=== PATIENT | female | born 1950 | race Caucasian/White ===

== ENCOUNTER 2016-04-25 12:06 | Inpatient (IN) | payer OTHER ==
[~2016-04-25] VITALS: Ht 152.4 cm; Wt 71.5 kg
[~2016-04-25 12:06] MED LIST: ADVAIR 250/501 DISK IH; ADVAIR HFA120 INHALA IH; ALBUTEROL2.5 MG/3 M IH; AMBIEN5 MG PO; AMITIZA24 MICROGR PO; AMLODIPINE BESY10 MG PO; Advair 250/50 Diskus IH; Ambien PO; Ancef,Kefzol IV; BACTRIM,SEPT1 TABLET PO; BENADRYL25 MG PO; BENZONATATE100 MG PO; BETAMETHASONE D15 GM TP; BETAMETHASONE D45 G1 TP; Bactrim,Septra DS 80 PO; CELEBREX200 MG; CELECOXIB200 MG PO; CYMBALTA60 MG PO; Colace PO; Cymbalta PO; DULOXETINE HCL30 MG PO; DUONEB 2.5-0.5 M3 ML AEROSOL; Ditropan PO; FLONASE16 G1 BOTH NARES; GLUCAGEN1 MG IM/SC; Glucophage PO; Glucophage XR,Fortam PO; HYDROCODON-ACE1 EAC3 PO; HYDROCODON-ACE1 EAC9 PO; KEFLEX250 MG PO; LASIX20 MG PO; LEVAQUIN750 MG PO; LISINOPRIL10 MG PO; LORCET PO; Levaquin PO; MELOXICAM15 MG PO; METFORMIN HCL500 M1 PO; METFORMIN HCL500 MG PO; MONTELUKAST SOD10 MG; MONTELUKAST SOD10 MG PO; MORPHINE SULFAT15 M1 PO; MORPHINE SULFAT60 M1 PO; MORPHINE SULFAT60 MG PO; MYRBETRIQ25 MG PO; NIASPAN,SLO-N1000 MG PO; NICOTINE PATCH1 EAC2 TD; NORCO 10/3251 TABLET PO; NYSTATIN15 GM TP; ONDANSETRON HCL4 MG PO; ONDANSETRON ODT4 MG PO; PERCOCET 5/31 TABLET PO; PRAVACHOL80 MG PO; PRAVASTATIN SOD20 MG PO; PREDNISONE10 M1 PO; PREDNISONE10 MG PO; PREDNISONE20 MG PO; PROAIR HFA8.5 GM IH; PROTONIX40 MG PO; PROVENTIL,2.5 MG/3 M IH; Pepcid PO; Phenergan PO; Pravachol PO; Proventil,Ventolin H IH; Q-DRYL PO; RANITIDINE HCL150 M1 PO; RANITIDINE HCL150 MG PO; SINGULAIR10 MG PO; SPIRIVA RESPIMAT4 GM IH; SPIRIVA1 INHALATI IH; TAMIFLU75 MG PO; TESSALON PERLE100 MG PO; TRAMADOL HCL50 MG PO; Tylenol PR; Tylenol Regular Stre PO; Ultram PO; VENTOLIN HFA18 GM IH; VESICARE10 MG PO; ZITHROMAX Z-PA250 MG PO; Zantac,Taladine PO; Zestril,Prinivil PO; Zocor PO
[2016-04-25 13:41] LABS: CHLORIDE 103 mEq/L (99-109); POTASSIUM 3.9 mEq/L (3.7-5.4); SODIUM 140 mEq/L (136-147)
[2016-04-25 13:43] LABS: GLUCOSE 136 mg/dL (70-99)
[2016-04-25 13:45] LABS: ANION GAP 12 MEQ/L (2-14); TOTAL BILIRUBIN 0.5 mg/dL (0.0-1.0)
[2016-04-25 13:47] LABS: ALKALINE PHOSPHATASE 81 IU/L (3-129); GFR ESTIMATE (CALCULATED) > 59 mL/min/
[2016-04-25 13:48] LABS: UREA NITROGEN (BUN) 13 mg/dL (9-23)
[2016-04-25 14:28] LABS: HEMATOCRIT 36.8 % (36.0-46.0); MCH 31.4 PG (29.0-34.0); MCV 92.5 FL (83-99); MEAN PLAT.VOLUME 10.8 uM^3 (9.5-12.4); PLATELET COUNT 151 K/uL (156-360); RBC DIS.WIDTH-CV 13.1 % (11.8-14.6); RBC DIS.WIDTH-SD 42.8 % (39-53); RED BLOOD COUNT 3.98 M/uL (3.80-5.20); WHITE BLOOD COUNT 3.2 K/uL (4.1-10.2)
[2016-04-25 15:41] LABS: TROP-I INTERPRETATION NEGATIVE; TROPONIN-I < 0.01 ng/mL (0.0-0.30)
[2016-04-25 16:01] LABS: D-DIMER ELISA 0.39 mg/L FEU (< 0.57)
[2016-04-25] MEDS ORDERED: RANITIDINE HCL150 MG PO (18:57)
[2016-04-25] MEDS ORDERED: SINGULAIR10 MG PO (18:57)
[2016-04-25] MEDS ORDERED: CYMBALTA30 MG PO (18:57)
[2016-04-25] MEDS ORDERED: HYDROCODON-ACE1 EAC9 PO (18:57)
[2016-04-25] MEDS ORDERED: METFORMIN HCL500 M1 PO (18:57)
[2016-04-25] MEDS ORDERED: BENZONATATE100 MG PO (18:58)
[2016-04-25] MEDS ORDERED: ADVAIR 250/501 DISK IH (18:58)
[2016-04-25] MEDS ORDERED: MYRBETRIQ50 MG PO (18:58)
[2016-04-25] MEDS ORDERED: PROAIR HFA8.5 GM IH (18:58)
[2016-04-25] MEDS ORDERED: MELOXICAM15 MG PO (18:58)
[2016-04-25] MEDS ORDERED: ALBUTEROL2.5 MG/3 M IH (18:58)
[2016-04-25] MEDS ORDERED: CELEBREX200 MG PO (18:58)
[2016-04-25] MEDS ORDERED: AMLODIPINE BESY10 MG PO (18:59)
[2016-04-25] MEDS ORDERED: AZITHROMYCIN250 MG1 PO ×2 (18:59→19:00)
[2016-04-25] MEDS ORDERED: DELTASONE20 M1 PO (18:59)
[2016-04-25] MEDS ORDERED: MORPHINE SULFAT60 MG PO (18:59)
[2016-04-25] MEDS ORDERED: BENADRYL25 MG PO (19:00)
[2016-04-25] MEDS ORDERED: ZOFRAN4 MG PO (19:00)
[2016-04-25 19:49] VITALS: BP 155/72
[2016-04-25 20:08] LABS: POINT-OF-CARE METER ID UU13113831
[2016-04-25 22:05] LABS: TROP-I INTERPRETATION NEGATIVE; TROPONIN-I < 0.01 ng/mL (0.0-0.30)
[2016-04-26 00:34] LABS: BILIRUBIN NEGATIVE; BLOOD NEGATIVE; COLOR YELLOW ((YELLOW)); GLUCOSE (STRIP) NEGATIVE; KETONES TRACE; LEUKOCYTES NEGATIVE; NITRITE NEGATIVE; PH, URINE 6.5 (5-8); PROTEIN (STRIP) 30; SPECIFIC GRAVITY 1.011 (1.000-1.030)
[2016-04-26 00:43] VITALS: BP 154/70
[2016-04-26 00:44] LABS: ADD MIUA? NO; UCUL ADDED? NO
[2016-04-26 07:28] LABS: POINT-OF-CARE METER ID UU14162513
[2016-04-26 08:18] VITALS: BP 147/70
[2016-04-26 12:45] VITALS: BP 142/67
[2016-04-26 12:50] LABS: POINT-OF-CARE METER ID UU14162513
[2016-04-26 16:08] VITALS: BP 142/67
[2016-04-26 17:27] LABS: POINT-OF-CARE METER ID UU14162513
[2016-04-26 20:40] VITALS: BP 138/63
[2016-04-26 22:07] LABS: POINT-OF-CARE METER ID UU13113700
[2016-04-27 04:00] VITALS: BP 122/80
[2016-04-27 07:44] LABS: POINT-OF-CARE METER ID UU13113831
[2016-04-27 08:40] VITALS: BP 145/67
[2016-04-27 10:04] LABS: MCH 31.6 PG (29.0-34.0); MCHC 33.5 G/DL (30.0-36.0); MCV 94.1 FL (83-99); MEAN PLAT.VOLUME 11.1 uM^3 (9.5-12.4); PLATELET COUNT 166 K/uL (156-360); RBC DIS.WIDTH-CV 13.3 % (11.8-14.6); RBC DIS.WIDTH-SD 46.1 % (39-53); RED BLOOD COUNT 3.93 M/uL (3.80-5.20)
[2016-04-27 10:08] LABS: WHITE BLOOD COUNT 4.6 K/uL (4.1-10.2)
[2016-04-27 10:20] LABS: ANION GAP 9 MEQ/L (2-14); CHLORIDE 103 MEQ/L (99-109); GFR ESTIMATE (CALCULATED) > 59 mL/min/; GLUCOSE 166 mg/dL (70-99); POTASSIUM 4.1 MEQ/L (3.7-5.4); SAMPLE HEMOLYSIS CHECK 0; SAMPLE ICTERIC CHECK 0; SAMPLE LIPEMIA CHECK 0; SODIUM 140 MEQ/L (136-147)
[2016-04-27 10:21] LABS: UREA NITROGEN (BUN) 24 mg/dL (9-23)
[2016-04-27 12:31] LABS: POINT-OF-CARE METER ID UU14162513
[2016-04-27 12:44] VITALS: BP 139/70
[2016-04-27 16:35] VITALS: BP 142/63
[2016-04-27 17:34] LABS: POINT-OF-CARE METER ID UU14162513
[2016-04-27 20:00] VITALS: BP 143/68
[2016-04-27 22:01] LABS: POINT-OF-CARE METER ID UU14162513
[2016-04-28] VITALS (7 sets, daily range): BP systolic 127–159; BP diastolic 64–72
[2016-04-28 07:43] LABS: POINT-OF-CARE METER ID UU13113831
[2016-04-28 12:23] LABS: POINT-OF-CARE METER ID UU14162513
[2016-04-29 03:18] VITALS: BP 145/69
[2016-04-29 08:00] VITALS: BP 146/72
[2016-04-29 16:00] VITALS: BP 102/53
[2016-04-29 23:30] VITALS: BP 149/70
[2016-04-30 07:45] LABS: EOSINOPHIL (%) 0 % (0-5); HEMATOCRIT 38.3 % (36.0-46.0); IMMATURE GRANULOCYTE (%) 0.4 % (0.0-0.7); MCH 31.5 PG (29.0-34.0); MCHC 33.7 G/DL (30.0-36.0); MCV 93.4 FL (83-99); MEAN PLAT.VOLUME 10.8 uM^3 (9.5-12.4); MONOCYTE (%) 7.9 % (3-12); MONOCYTE COUNT 0.6 K/uL (0-0.8); NEUTROPHIL (%) 65.2 % (45-76); PLATELET COUNT 165 K/uL (156-360); RBC DIS.WIDTH-CV 12.9 % (11.8-14.6); RBC DIS.WIDTH-SD 44.2 % (39-53)
[2016-04-30 07:50] LABS: WHITE BLOOD COUNT 7.7 K/uL (4.1-10.2)
[2016-04-30 08:00] VITALS: BP 151/72
[2016-04-30 08:08] LABS: ANION GAP 7 MEQ/L (2-14); CHLORIDE 98 MEQ/L (99-109); GFR ESTIMATE (CALCULATED) > 59 mL/min/; POTASSIUM 4.6 MEQ/L (3.7-5.4); SAMPLE HEMOLYSIS CHECK 0; SAMPLE ICTERIC CHECK 0; SAMPLE LIPEMIA CHECK 0; SODIUM 141 MEQ/L (136-147); UREA NITROGEN (BUN) 23 mg/dL (9-23)
[2016-04-30 08:09] LABS: GLUCOSE 83 mg/dL (70-99)
[2016-04-30 15:25] VITALS: BP 134/692
[2016-04-30 23:56] VITALS: BP 167/79
[2016-05-01 07:00] VITALS: BP 143/70
[2016-05-01 07:24] LABS: EOSINOPHIL (%) 0.3 % (0-5); IMMATURE GRANULOCYTE COUNT 0.1 K/uL; LYMPHOCYTE COUNT 1.9 K/uL (1.0-2.8); MCH 31.3 PG (29.0-34.0); MCHC 34.2 G/DL (30.0-36.0); MCV 91.3 FL (83-99); MEAN PLAT.VOLUME 10.8 uM^3 (9.5-12.4); MONOCYTE (%) 9.2 % (3-12); MONOCYTE COUNT 0.7 K/uL (0-0.8); NEUTROPHIL (%) 62.6 % (45-76); NEUTROPHIL COUNT 4.5 K/uL (1.8-6.4); NRBC (%) 0.3 /100 WBC (0-0); PLATELET COUNT 170 K/uL (156-360); RBC DIS.WIDTH-CV 12.7 % (11.8-14.6); RBC DIS.WIDTH-SD 42.2 % (39-53); RED BLOOD COUNT 4.16 M/uL (3.80-5.20); WHITE BLOOD COUNT 7.1 K/uL (4.1-10.2)
[2016-05-01 10:08] LABS: ANION GAP 6 MEQ/L (2-14); CHLORIDE 98 MEQ/L (99-109); POTASSIUM 4.1 MEQ/L (3.7-5.4); SAMPLE HEMOLYSIS CHECK 0; SAMPLE ICTERIC CHECK 0; SAMPLE LIPEMIA CHECK 0; SODIUM 138 MEQ/L (136-147)
[2016-05-01 10:14] LABS: GFR ESTIMATE (CALCULATED) > 59 mL/min/; GLUCOSE 95 mg/dL (70-99); UREA NITROGEN (BUN) 23 mg/dL (9-23)
[2016-05-01 14:50] VITALS: BP 140/69
[2016-05-01 19:17] VITALS: BP 136/69
[2016-05-01 23:38] VITALS: BP 131/58
[2016-05-02 08:32] VITALS: BP 171/84
[2016-05-02 09:30] LABS: TROP-I INTERPRETATION NEGATIVE; TROPONIN-I < 0.01 ng/mL (0.0-0.30)
[2016-05-02] MEDS ORDERED: SPIRIVA RESPIMAT4 GM IH (10:25)
[2016-05-02] MEDS ORDERED: DUONEB 2.5-0.5 M3 ML AEROSOL (10:25)
[2016-05-02] MEDS ORDERED: PREDNISONE10 MG PO (10:25)
[2016-05-02 15:59] VITALS: BP 128/58
== END 2016-05-02 19:13 | disposition home or self-care (01) | DRG 981 ==
LOC: EME → EDSEX 12:06 → EDBD 12:06 → EDOF 17:32 → 5WEST 19:39 → 2EAST 04-26 08:51
PROVIDERS: Internal Medicine; Nurse Practitioner Adult Health; Nurse Practitioner Family
PROC: 0JDP0ZZ Extraction of Left Lower Leg Subcutaneous Tissue and Fascia, Open Approach (ICD-10-PCS; principal; 2016-04-29)
DX: J44.1 Chronic obstructive pulmonary disease with (acute) exacerbation (principal); J96.01 Acute respiratory failure with hypoxia; L97.822 Non-pressure chronic ulcer of other part of left lower leg with fat layer exposed; E11.9 Type 2 diabetes mellitus without complications; D72.819 Decreased white blood cell count, unspecified; F41.9 Anxiety disorder, unspecified; K21.9 Gastro-esophageal reflux disease without esophagitis; G89.4 Chronic pain syndrome; Z90.49 Acquired absence of other specified parts of digestive tract; F17.210 Nicotine dependence, cigarettes, uncomplicated
CPT/HCPCS: 71020; 80048; 80053; 81003; 82948; 83880; 84484; 85025; 85027; 85379; 87070; 87205; 93005; 94640; 94640 76; 94760; 94799; 99202; 99281; 99285; G0378; J1100; J1650; J1815; J2930; J7030; J7512; J7644; Q0164

== ENCOUNTER 2016-05-03 22:55 | Inpatient (IN) | payer OTHER ==
[~2016-05-03] VITALS: Ht 152.4 cm; Wt 70.0 kg
[~2016-05-03 22:55] MED LIST changes: +AZITHROMYCIN250 MG1 PO; +CELEBREX200 MG PO; +CYMBALTA30 MG PO; +DELTASONE20 M1 PO; +MYRBETRIQ50 MG PO; +ZOFRAN4 MG PO
[2016-05-04 00:03] LABS: EOSINOPHIL (%) 0 % (0-5); HEMATOCRIT 42.6 % (36.0-46.0); IMMATURE GRANULOCYTE (%) 0.7 % (0.0-0.7); IMMATURE GRANULOCYTE COUNT 1.1 K/uL; LYMPHOCYTE COUNT 1.2 K/uL (1.0-2.8); MCH 31.5 PG (29.0-34.0); MCHC 34.5 G/DL (30.0-36.0); MCV 91.4 FL (83-99); MEAN PLAT.VOLUME 10.8 uM^3 (9.5-12.4); MONOCYTE COUNT 0.3 K/uL (0-0.8); NEUTROPHIL (%) 90.1 % (45-76); NEUTROPHIL COUNT 14.9 K/uL (1.8-6.4); PLATELET COUNT 178 K/uL (156-360); RBC DIS.WIDTH-CV 12.9 % (11.8-14.6); RED BLOOD COUNT 4.66 M/uL (3.80-5.20); WHITE BLOOD COUNT 16.5 K/uL (4.1-10.2)
[2016-05-04 00:10] LABS: CHLORIDE 96 mEq/L (99-109); POTASSIUM 4.2 mEq/L (3.7-5.4); SODIUM 134 mEq/L (136-147)
[2016-05-04 00:13] LABS: ANION GAP 11 MEQ/L (2-14)
[2016-05-04 00:14] LABS: GLUCOSE 278 mg/dL (70-99); TOTAL BILIRUBIN 0.7 mg/dL (0.0-1.0)
[2016-05-04 00:15] LABS: ALKALINE PHOSPHATASE 81 IU/L (3-129)
[2016-05-04 00:16] LABS: GFR ESTIMATE (CALCULATED) > 59 mL/min/
[2016-05-04 00:17] LABS: UREA NITROGEN (BUN) 21 mg/dL (9-23)
[2016-05-04 00:22] LABS: TROP-I INTERPRETATION NEGATIVE; TROPONIN-I < 0.01 ng/mL (0.0-0.30)
[2016-05-04 02:35] VITALS: BP 137/65
[2016-05-04 07:33] VITALS: BP 134/75
[2016-05-04 14:48] VITALS: BP 156/72
[2016-05-04 20:13] VITALS: BP 133/63
[2016-05-04 23:20] VITALS: BP 127/61
[2016-05-05 02:56] VITALS: BP 117/56
[2016-05-05 06:33] LABS: HEMATOCRIT 37.5 % (36.0-46.0); MCH 31.1 PG (29.0-34.0); MCHC 33.6 G/DL (30.0-36.0); MCV 92.6 FL (83-99); MEAN PLAT.VOLUME 11.1 uM^3 (9.5-12.4); PLATELET COUNT 164 K/uL (156-360); RBC DIS.WIDTH-CV 12.7 % (11.8-14.6); RBC DIS.WIDTH-SD 43.3 % (39-53); RED BLOOD COUNT 4.05 M/uL (3.80-5.20); WHITE BLOOD COUNT 12.7 K/uL (4.1-10.2)
[2016-05-05 06:39] LABS: ANION GAP 7 MEQ/L (2-14); CHLORIDE 99 MEQ/L (99-109); GFR ESTIMATE (CALCULATED) > 59 mL/min/; GLUCOSE 182 mg/dL (70-99); POTASSIUM 4.6 MEQ/L (3.7-5.4); SAMPLE HEMOLYSIS CHECK 0; SAMPLE ICTERIC CHECK 0; SAMPLE LIPEMIA CHECK 0; SODIUM 138 MEQ/L (136-147); UREA NITROGEN (BUN) 28 mg/dL (9-23)
[2016-05-05 08:10] LABS: INTERNAL CONTROL VALID? YES
[2016-05-05 08:28] VITALS: BP 130/83
[2016-05-05 11:12] VITALS: BP 134/64
[2016-05-05 16:02] VITALS: BP 132/68
[2016-05-05 20:47] VITALS: BP 146/72
[2016-05-05 22:42] VITALS: BP 150/69
[2016-05-06] VITALS (7 sets, daily range): BP systolic 127–149; BP diastolic 62–81
[2016-05-06 06:30] LABS: HEMATOCRIT 36.9 % (36.0-46.0); MCHC 33.1 G/DL (30.0-36.0); MCV 93.7 FL (83-99); MEAN PLAT.VOLUME 10.9 uM^3 (9.5-12.4); PLATELET COUNT 189 K/uL (156-360); RBC DIS.WIDTH-CV 12.7 % (11.8-14.6); RBC DIS.WIDTH-SD 43.4 % (39-53); RED BLOOD COUNT 3.94 M/uL (3.80-5.20)
[2016-05-06 06:53] LABS: ANION GAP 8 MEQ/L (2-14); CHLORIDE 100 MEQ/L (99-109); GFR ESTIMATE (CALCULATED) > 59 mL/min/; GLUCOSE 134 mg/dL (70-99); POTASSIUM 4.3 MEQ/L (3.7-5.4); SAMPLE HEMOLYSIS CHECK 1; SAMPLE ICTERIC CHECK 0; SAMPLE LIPEMIA CHECK 0; SODIUM 140 MEQ/L (136-147); UREA NITROGEN (BUN) 21 mg/dL (9-23)
[2016-05-07 04:03] VITALS: BP 139/63
[2016-05-07 07:55] VITALS: BP 130/69
[2016-05-07 11:36] VITALS: BP 147/65
[2016-05-07 15:47] VITALS: BP 133/65
[2016-05-07 19:16] VITALS: BP 130/62
[2016-05-07 23:10] VITALS: BP 156/73
[2016-05-08 03:33] VITALS: BP 189/77
[2016-05-08 08:24] VITALS: BP 146/66
[2016-05-08 11:43] VITALS: BP 133/71
[2016-05-08 16:00] VITALS: BP 149/78
[2016-05-08 20:25] VITALS: BP 154/72
[2016-05-09 01:35] VITALS: BP 141/64
[2016-05-09 04:11] VITALS: BP 151/60
[2016-05-09 08:40] VITALS: BP 97/68
[2016-05-09] MEDS ORDERED: MORPHINE SULFAT60 MG PO (10:44)
[2016-05-09] MEDS ORDERED: LEVAQUIN750 MG PO (10:44)
[2016-05-09] MEDS ORDERED: HYDROCODON-ACE1 EAC9 PO (10:44)
[2016-05-09] MEDS ORDERED: PREDNISONE10 M1 PO (10:44)
[2016-05-09 12:33] VITALS: BP 144/66
== END 2016-05-09 14:49 | DRG 189 ==
LOC: EME → EDBD 22:55 → EDOF 05-04 00:41 → 5EAST 05-04 00:41 → EDOF 05-04 01:20 → 5EAST 05-04 02:23
PROVIDERS: Emergency Medicine; Hospitalist; Internal Medicine
PROC: 0HDLXZZ Extraction of Left Lower Leg Skin, External Approach (ICD-10-PCS; principal; 2016-05-08)
DX: J96.01 Acute respiratory failure with hypoxia (principal); J44.0 Chronic obstructive pulmonary disease with (acute) lower respiratory infection; J18.9 Pneumonia, unspecified organism; J44.1 Chronic obstructive pulmonary disease with (acute) exacerbation; L97.822 Non-pressure chronic ulcer of other part of left lower leg with fat layer exposed; I10 Essential (primary) hypertension; E11.9 Type 2 diabetes mellitus without complications; K21.9 Gastro-esophageal reflux disease without esophagitis; G89.4 Chronic pain syndrome; F17.210 Nicotine dependence, cigarettes, uncomplicated; Y95 Nosocomial condition; E66.9 Obesity, unspecified; Z68.30 Body mass index [BMI] 30.0-30.9, adult; Z99.81 Dependence on supplemental oxygen; Z88.7 Allergy status to serum and vaccine; Z88.0 Allergy status to penicillin; Z88.1 Allergy status to other antibiotic agents; Z86.14 Personal history of Methicillin resistant Staphylococcus aureus infection
CPT/HCPCS: 71010; 71250; 74230; 80048; 80053; 80202; 83605; 83880; 84484; 85025; 85027; 87040; 87070; 87205; 87449; 92610 GN; 92611 GN; 93005; 94640; 94640 76; 94760; 94799; 97530 GO; 99202; 99281; 99285; G8978 GP CI; G8979 GP CH; J0692; J1650; J2270; J2543; J2930; J3370; J7050; J7512; J7644

== ENCOUNTER → 2016-05-21 | Outpatient (CLI) | payer OTHER | LOC: RAD 10:36 | DX: J98.11 Atelectasis (principal); J84.10 Pulmonary fibrosis, unspecified | CPT/HCPCS: 71250 ==

== ENCOUNTER 2016-09-03 20:44 | Emergency (ER) | payer OTHER ==
[~2016-09-03] VITALS: Ht 152.4 cm; Wt 70.5 kg
[2016-09-03 21:06] VITALS: BP 109/66
[2016-09-03 22:22] LABS: HEMATOCRIT 38.6 % (36.0-46.0); MCH 30.6 PG (29.0-34.0); MCHC 32.4 G/DL (30.0-36.0); MCV 94.6 FL (83-99); MEAN PLAT.VOLUME 11.1 uM^3 (9.5-12.4); PLATELET COUNT 197 K/uL (156-360); RBC DIS.WIDTH-CV 13.2 % (11.8-14.6); RBC DIS.WIDTH-SD 45.6 % (39-53); RED BLOOD COUNT 4.08 M/uL (3.80-5.20); WHITE BLOOD COUNT 7.4 K/uL (4.1-10.2)
[2016-09-03 22:42] LABS: CHLORIDE 106 mEq/L (99-109); POTASSIUM 5.1 mEq/L (3.7-5.4); SODIUM 140 mEq/L (136-147)
[2016-09-03 22:44] LABS: GLUCOSE 146 mg/dL (70-99)
[2016-09-03 22:45] LABS: ANION GAP 10 MEQ/L (2-14)
[2016-09-03 22:46] LABS: TOTAL BILIRUBIN 0.3 mg/dL (0.0-1.0)
[2016-09-03 22:47] LABS: ALKALINE PHOSPHATASE 113 IU/L (3-129)
[2016-09-03 22:48] LABS: GFR ESTIMATE (CALCULATED) 47 mL/min/
[2016-09-03 22:49] LABS: UREA NITROGEN (BUN) 30 mg/dL (9-23)
[2016-09-03] MEDS ORDERED: KEFLEX500 MG PO (23:49)
== END 2016-09-04 01:24 | disposition home or self-care (01) ==
LOC: EME 20:44
DX: L03.116 Cellulitis of left lower limb (principal); R60.0 Localized edema; J45.909 Unspecified asthma, uncomplicated; J44.9 Chronic obstructive pulmonary disease, unspecified; E11.9 Type 2 diabetes mellitus without complications; I10 Essential (primary) hypertension; Z87.442 Personal history of urinary calculi; K21.9 Gastro-esophageal reflux disease without esophagitis; Z87.891 Personal history of nicotine dependence; Z79.84 Long term (current) use of oral hypoglycemic drugs
CPT/HCPCS: 80053; 83880; 85027; 99281; 99284

== ENCOUNTER 2016-11-06 14:19 | Inpatient (IN) | payer OTHER ==
[~2016-11-06] VITALS: Ht 152.4 cm; Wt 76.3 kg
[~2016-11-06 14:19] MED LIST changes: +KEFLEX500 MG PO
[2016-11-06 16:42] LABS: EOSINOPHIL (%) 0.9 % (0-5); EOSINOPHIL COUNT 0.1 K/uL (0-0.3); HEMATOCRIT 33.5 % (36.0-46.0); IMMATURE GRANULOCYTE (%) 0.5 % (0.0-0.7); IMMATURE GRANULOCYTE COUNT 0.1 K/uL; INSTRUMENT ABS NEUTROPHIL CT 8.3 K/uL; LYMPHOCYTE COUNT 1.5 K/uL (1.0-2.8); MCH 29.9 PG (29.0-34.0); MCHC 33.1 G/DL (30.0-36.0); MCV 90.3 FL (83-99); MEAN PLAT.VOLUME 10.7 uM^3 (9.5-12.4); MONOCYTE (%) 5.2 % (3-12); MONOCYTE COUNT 0.6 K/uL (0-0.8); NEUTROPHIL (%) 78.4 % (45-76); NEUTROPHIL COUNT 8.3 K/uL (1.8-6.4); PLATELET COUNT 194 K/uL (156-360); RBC DIS.WIDTH-CV 13.7 % (11.8-14.6); RED BLOOD COUNT 3.71 M/uL (3.80-5.20); WHITE BLOOD COUNT 10.6 K/uL (4.1-10.2)
[2016-11-06 17:19] LABS: CHLORIDE 103 mEq/L (99-109); POTASSIUM 4.1 mEq/L (3.7-5.4); SODIUM 138 mEq/L (136-147)
[2016-11-06 17:20] LABS: GLUCOSE 117 mg/dL (70-99)
[2016-11-06 17:22] LABS: ANION GAP 11 MEQ/L (2-14)
[2016-11-06 17:24] LABS: GFR ESTIMATE (CALCULATED) 52 mL/min/
[2016-11-06 17:25] LABS: UREA NITROGEN (BUN) 27 mg/dL (9-23)
[2016-11-07 03:12] LABS: HEMATOCRIT 33.6 % (36.0-46.0); MCH 29.7 PG (29.0-34.0); MCV 89.8 FL (83-99); MEAN PLAT.VOLUME 10.9 uM^3 (9.5-12.4); PLATELET COUNT 187 K/uL (156-360); RBC DIS.WIDTH-CV 13.6 % (11.8-14.6); RBC DIS.WIDTH-SD 44.6 % (39-53); RED BLOOD COUNT 3.74 M/uL (3.80-5.20); WHITE BLOOD COUNT 3.2 K/uL (4.1-10.2)
[2016-11-07 03:26] LABS: CHLORIDE 104 mEq/L (99-109); SODIUM 135 mEq/L (136-147)
[2016-11-07 03:30] LABS: ANION GAP 8 MEQ/L (2-14); TOTAL BILIRUBIN 0.5 mg/dL (0.0-1.0)
[2016-11-07 03:31] LABS: GLUCOSE 188 mg/dL (70-99)
[2016-11-07 03:32] LABS: ALKALINE PHOSPHATASE 93 IU/L (3-129); GFR ESTIMATE (CALCULATED) 59 mL/min/
[2016-11-07 03:33] LABS: UREA NITROGEN (BUN) 21 mg/dL (9-23)
[2016-11-07 05:03] LABS: TROP-I INTERPRETATION NEGATIVE; TROPONIN-I < 0.01 ng/mL (0.0-0.30)
[2016-11-07 08:37] LABS: POINT-OF-CARE METER ID UU14100415
[2016-11-07 10:00] VITALS: BP 123/77
[2016-11-07 11:32] LABS: POINT-OF-CARE METER ID UU13113747
[2016-11-07 12:24] VITALS: BP 115/66
[2016-11-07] MEDS ORDERED: ADVAIR 250/501 DISK IH (12:51)
[2016-11-07] MEDS ORDERED: AMLODIPINE BESY10 MG PO (12:52)
[2016-11-07] MEDS ORDERED: CETIRIZINE HCL10 M2 PO (12:56)
[2016-11-07] MEDS ORDERED: LASIX40 MG PO (12:58)
[2016-11-07] MEDS ORDERED: SPIRIVA RESPIMAT4 GM IH (13:01)
[2016-11-07] MEDS ORDERED: HYDROCODON-ACE1 EAC9 PO (13:02)
[2016-11-07] MEDS ORDERED: LASIX20 MG PO (13:03)
[2016-11-07] MEDS ORDERED: MORPHINE SULFAT60 MG PO (13:03)
[2016-11-07] MEDS ORDERED: METFORMIN HCL500 MG PO (13:04)
[2016-11-07] MEDS ORDERED: LISINOPRIL2.5 MG PO (13:05)
[2016-11-07] MEDS ORDERED: PRAVASTATIN SOD80 MG PO (13:05)
[2016-11-07] MEDS ORDERED: SPIRIVA1 INHALATI IH (13:05)
[2016-11-07 13:23] VITALS: BP 127/77
[2016-11-07 15:45] VITALS: BP 129/64
[2016-11-07 19:44] VITALS: BP 131/66
[2016-11-08 00:18] VITALS: BP 126/75
[2016-11-08 03:53] VITALS: BP 122/70
[2016-11-08 07:05] LABS: HEMATOCRIT 35.5 % (36.0-46.0); MCH 30.6 PG (29.0-34.0); MCHC 34.4 G/DL (30.0-36.0); MEAN PLAT.VOLUME 11.2 uM^3 (9.5-12.4); PLATELET COUNT 218 K/uL (156-360); RBC DIS.WIDTH-CV 13.9 % (11.8-14.6); RBC DIS.WIDTH-SD 45.1 % (39-53); RED BLOOD COUNT 3.99 M/uL (3.80-5.20); WHITE BLOOD COUNT 5.7 K/uL (4.1-10.2)
[2016-11-08 07:28] LABS: ANION GAP 10 MEQ/L (2-14); CHLORIDE 107 MEQ/L (99-109); GFR ESTIMATE (CALCULATED) > 59 mL/min/; GLUCOSE 212 mg/dL (70-99); POTASSIUM 3.9 MEQ/L (3.7-5.4); SAMPLE HEMOLYSIS CHECK 0; SAMPLE ICTERIC CHECK 0; SAMPLE LIPEMIA CHECK 0; SODIUM 141 MEQ/L (136-147); UREA NITROGEN (BUN) 18 mg/dL (9-23)
[2016-11-08 07:45] VITALS: BP 135/61
[2016-11-08 11:30] VITALS: BP 129/63
[2016-11-08 15:48] VITALS: BP 136/65
[2016-11-08 20:07] VITALS: BP 132/61
[2016-11-09 01:18] VITALS: BP 145/67
[2016-11-09 03:36] VITALS: BP 142/65
[2016-11-09 07:57] LABS: ANION GAP 7 MEQ/L (2-14); CHLORIDE 106 MEQ/L (99-109); CREATINE KINASE 57 IU/L (1-294); GFR ESTIMATE (CALCULATED) > 59 mL/min/; GLUCOSE 205 mg/dL (70-99); MAGNESIUM 1.8 mg/dl (1.3-2.7); POTASSIUM 3.7 MEQ/L (3.7-5.4); SAMPLE HEMOLYSIS CHECK 0; SAMPLE ICTERIC CHECK 0; SAMPLE LIPEMIA CHECK 0; SODIUM 140 MEQ/L (136-147); UREA NITROGEN (BUN) 16 mg/dL (9-23)
[2016-11-09 07:58] LABS: EOSINOPHIL (%) 0 % (0-5); HEMATOCRIT 33.3 % (36.0-46.0); IMMATURE GRANULOCYTE (%) 0.5 % (0.0-0.7); INSTRUMENT ABS NEUTROPHIL CT 5.7 K/uL; LYMPHOCYTE COUNT 0.5 K/uL (1.0-2.8); MCH 29.6 PG (29.0-34.0); MCHC 33.3 G/DL (30.0-36.0); MCV 88.8 FL (83-99); MEAN PLAT.VOLUME 11.2 uM^3 (9.5-12.4); MONOCYTE (%) 2.2 % (3-12); MONOCYTE COUNT 0.1 K/uL (0-0.8); NEUTROPHIL (%) 88.8 % (45-76); NEUTROPHIL COUNT 5.7 K/uL (1.8-6.4); PLATELET COUNT 179 K/uL (156-360); RBC DIS.WIDTH-SD 45.8 % (39-53); RED BLOOD COUNT 3.75 M/uL (3.80-5.20); WHITE BLOOD COUNT 6.4 K/uL (4.1-10.2)
[2016-11-09 09:01] VITALS: BP 144/63
[2016-11-09 11:53] VITALS: BP 144/67
[2016-11-09 12:00] LABS: POINT-OF-CARE METER ID UU14208750
[2016-11-09 14:27] LABS: METH RESISTANT S AUREUS PCR NEGATIVE (NEGATIVE)
[2016-11-09 14:36] LABS: PROBE CHECK PASS; SPECIMEN PROCESSING CONTROL PASS
[2016-11-09 15:35] VITALS: BP 143/82
[2016-11-09 15:52] LABS: POINT-OF-CARE METER ID UU14208750
[2016-11-09 21:03] VITALS: BP 155/65
[2016-11-09 21:38] LABS: POINT-OF-CARE METER ID UU14208750
[2016-11-10 00:45] VITALS: BP 161/72
[2016-11-10 04:30] VITALS: BP 141/80
[2016-11-10 07:03] LABS: POINT-OF-CARE METER ID UU14208750
[2016-11-10 07:20] VITALS: BP 141/65
[2016-11-10 11:58] LABS: POINT-OF-CARE METER ID UU14208750
[2016-11-10 12:00] VITALS: BP 174/81
[2016-11-10 15:43] VITALS: BP 177/77
[2016-11-10 16:03] LABS: POINT-OF-CARE METER ID UU14208750
[2016-11-10 23:16] VITALS: BP 170/70
[2016-11-11 07:16] LABS: POINT-OF-CARE USER ID PUTDRM
[2016-11-11 07:50] VITALS: BP 149/68
[2016-11-11] MEDS ORDERED: PREDNISONE10 MG PO (11:13)
[2016-11-11] MEDS ORDERED: LIDOCAINE700 MG TD (11:13)
[2016-11-11] MEDS ORDERED: CEPHALEXIN250 MG PO (11:13)
[2016-11-11] MEDS ORDERED: OXYCODONE HCL5 MG PO (11:13)
[2016-11-11 15:45] VITALS: BP 145/70
== END 2016-11-11 19:06 | disposition home or self-care (01) | DRG 189 ==
LOC: EME 14:19 → 2EASTP 11-07 02:21 → EDOF 11-07 02:21 → 2EASTP 11-07 13:05
PROVIDERS: Emergency Medicine; Hospitalist; Internal Medicine
DX: J96.01 Acute respiratory failure with hypoxia (principal); L03.116 Cellulitis of left lower limb; K50.90 Crohn's disease, unspecified, without complications; J44.1 Chronic obstructive pulmonary disease with (acute) exacerbation; Z99.81 Dependence on supplemental oxygen; E11.65 Type 2 diabetes mellitus with hyperglycemia; J20.9 Acute bronchitis, unspecified; E04.1 Nontoxic single thyroid nodule; M54.9 Dorsalgia, unspecified; M25.511 Pain in right shoulder; K21.9 Gastro-esophageal reflux disease without esophagitis; I10 Essential (primary) hypertension; D72.829 Elevated white blood cell count, unspecified; G89.4 Chronic pain syndrome; F41.8 Other specified anxiety disorders; F32.9 Major depressive disorder, single episode, unspecified; M47.816 Spondylosis without myelopathy or radiculopathy, lumbar region; F41.9 Anxiety disorder, unspecified; M13.0 Polyarthritis, unspecified; R29.6 Repeated falls; F17.210 Nicotine dependence, cigarettes, uncomplicated; E66.9 Obesity, unspecified; Z68.32 Body mass index [BMI] 32.0-32.9, adult; Z86.14 Personal history of Methicillin resistant Staphylococcus aureus infection; Z88.0 Allergy status to penicillin
CPT/HCPCS: 70450; 71101; 71275; 73030; 80048; 80053; 82550; 82948; 83735; 83880; 84100; 84484; 84520; 85025; 85027; 87070; 87205; 87641; 93005; 93970; 94640; 94640 76; 94799; 97530 GP; 99202; 99281; 99285; J0690; J1644; J1815; J2920; J2930; J7030; J7050; J7512

== ENCOUNTER 2017-03-12 12:19 | Inpatient (IN) | payer OTHER ==
[~2017-03-12] VITALS: Ht 152.4 cm; Wt 75.5 kg
[~2017-03-12 12:19] MED LIST changes: +CEPHALEXIN250 MG PO; +CETIRIZINE HCL10 M2 PO; +LASIX40 MG PO; +LIDOCAINE700 MG TD; +LISINOPRIL2.5 MG PO; +OXYCODONE HCL5 MG PO; +PRAVASTATIN SOD80 MG PO
[2017-03-12 13:06] LABS: MCH 30.7 PG (29.0-34.0); MCV 90.2 FL (83-99); MEAN PLAT.VOLUME 12.1 uM^3 (9.5-12.4); PLATELET COUNT 110 K/uL (156-360); RBC DIS.WIDTH-CV 12.9 % (11.8-14.6); RBC DIS.WIDTH-SD 42.4 % (39-53); RED BLOOD COUNT 3.88 M/uL (3.80-5.20); WHITE BLOOD COUNT 9.1 K/uL (4.1-10.2)
[2017-03-12 13:26] LABS: CHLORIDE 102 mEq/L (99-109); SODIUM 135 mEq/L (136-147)
[2017-03-12 13:28] LABS: GLUCOSE 141 mg/dL (70-99)
[2017-03-12 13:33] LABS: ANION GAP 14 MEQ/L (2-14); GFR ESTIMATE (CALCULATED) 32 mL/min/; UREA NITROGEN (BUN) 34 mg/dL (9-23)
[2017-03-12 13:39] LABS: TROP-I INTERPRETATION NEGATIVE; TROPONIN-I 0.05 ng/mL (0.0-0.30)
[2017-03-12 14:39] LABS: ADD MIUA? YES; BILIRUBIN NEGATIVE; BLOOD SMALL; COLOR YELLOW ((YELLOW)); GLUCOSE (STRIP) NEGATIVE; KETONES NEGATIVE; LEUKOCYTES NEGATIVE; NITRITE NEGATIVE; PROTEIN (STRIP) NEGATIVE; UROBILINOGEN 0.2 MG/DL (0.2-1.0)
[2017-03-12 14:53] LABS: BACTERIA NONE SEEN /HPF; EPITHELIAL CELLS RARE /HPF; GRANULAR CASTS 0-5 /LPF; MUCUS TRACE /LPF; RED BLOOD CELLS 0-5 /HPF (0-5); UCUL ADDED? NO; WHITE BLOOD CELLS 0-5 /HPF (0-5)
[2017-03-12 16:37] LABS: TROP-I INTERPRETATION NEGATIVE; TROPONIN-I 0.04 ng/mL (0.0-0.30)
[2017-03-12 16:52] LABS: CREATINE KINASE 858 IU/L (1-294)
[2017-03-12 21:09] VITALS: BP 101/52
[2017-03-13 00:16] VITALS: BP 114/57
[2017-03-13 06:05] LABS: HEMATOCRIT 30.4 % (36.0-46.0); MCH 30.6 PG (29.0-34.0); MCHC 33.6 G/DL (30.0-36.0); MCV 91.3 FL (83-99); MEAN PLAT.VOLUME 10.9 uM^3 (9.5-12.4); RBC DIS.WIDTH-SD 43.2 % (39-53); RED BLOOD COUNT 3.33 M/uL (3.80-5.20); WHITE BLOOD COUNT 5.7 K/uL (4.1-10.2)
[2017-03-13 06:07] LABS: PLATELET COUNT 184 K/uL (156-360)
[2017-03-13 06:20] LABS: ANION GAP 12 MEQ/L (2-14); CHLORIDE 105 MEQ/L (99-109); CREATINE KINASE 523 IU/L (1-294); GFR ESTIMATE (CALCULATED) 52 mL/min/; POTASSIUM 3.4 MEQ/L (3.7-5.4); SAMPLE HEMOLYSIS CHECK 0; SAMPLE ICTERIC CHECK 0; SAMPLE LIPEMIA CHECK 0; SODIUM 141 MEQ/L (136-147); UREA NITROGEN (BUN) 23 mg/dL (9-23)
[2017-03-13 06:47] LABS: GLUCOSE 73 mg/dL (70-99)
[2017-03-13 07:20] VITALS: BP 109/58
[2017-03-13 07:25] LABS: POINT-OF-CARE METER ID UU13113774
[2017-03-13 11:10] VITALS: BP 123/64
[2017-03-13 11:28] LABS: POINT-OF-CARE METER ID UU13113774
[2017-03-13 15:10] VITALS: BP 100/57
[2017-03-13 16:40] LABS: POINT-OF-CARE METER ID UU13113774
[2017-03-13 20:04] VITALS: BP 126/63
[2017-03-13 21:18] LABS: POINT-OF-CARE METER ID UU13113725
[2017-03-13 23:39] VITALS: BP 149/69
[2017-03-14 03:44] VITALS: BP 143/69
[2017-03-14 06:04] LABS: EOSINOPHIL (%) 2.9 % (0-5); EOSINOPHIL COUNT 0.1 K/uL (0-0.3); HEMATOCRIT 29.9 % (36.0-46.0); IMMATURE GRANULOCYTE (%) 0.2 % (0.0-0.7); INSTRUMENT ABS NEUTROPHIL CT 2.5 K/uL; LYMPHOCYTE COUNT 1.7 K/uL (1.0-2.8); MCH 30.2 PG (29.0-34.0); MCHC 33.1 G/DL (30.0-36.0); MCV 91.2 FL (83-99); MEAN PLAT.VOLUME 10.9 uM^3 (9.5-12.4); MONOCYTE (%) 9.6 % (3-12); MONOCYTE COUNT 0.5 K/uL (0-0.8); NEUTROPHIL (%) 52.2 % (45-76); NEUTROPHIL COUNT 2.5 K/uL (1.8-6.4); PLATELET COUNT 191 K/uL (156-360); RBC DIS.WIDTH-SD 42.6 % (39-53); RED BLOOD COUNT 3.28 M/uL (3.80-5.20); WHITE BLOOD COUNT 4.8 K/uL (4.1-10.2)
[2017-03-14 06:13] LABS: POINT-OF-CARE METER ID UU13113725
[2017-03-14 06:26] LABS: ANION GAP 6 MEQ/L (2-14); CHLORIDE 114 MEQ/L (99-109); GFR ESTIMATE (CALCULATED) > 59 mL/min/; POTASSIUM 3.8 MEQ/L (3.7-5.4); SAMPLE HEMOLYSIS CHECK 0; SAMPLE ICTERIC CHECK 0; SAMPLE LIPEMIA CHECK 0; SODIUM 145 MEQ/L (136-147); UREA NITROGEN (BUN) 15 mg/dL (9-23)
[2017-03-14 06:27] LABS: GLUCOSE 100 mg/dL (70-99)
[2017-03-14 07:08] VITALS: BP 127/64
[2017-03-14 10:57] LABS: POINT-OF-CARE METER ID UU13113774
[2017-03-14 11:33] VITALS: BP 126/62
[2017-03-14 16:15] LABS: POINT-OF-CARE METER ID UU13113774
[2017-03-14 16:47] VITALS: BP 147/66
[2017-03-14 21:29] VITALS: BP 139/67
[2017-03-15] VITALS (7 sets, daily range): BP systolic 144–165; BP diastolic 65–74
[2017-03-15 06:12] LABS: EOSINOPHIL (%) 2.5 % (0-5); EOSINOPHIL COUNT 0.1 K/uL (0-0.3); HEMATOCRIT 29.7 % (36.0-46.0); IMMATURE GRANULOCYTE (%) 0.2 % (0.0-0.7); INSTRUMENT ABS NEUTROPHIL CT 2.6 K/uL; MCH 30.4 PG (29.0-34.0); MCHC 33.7 G/DL (30.0-36.0); MCV 90.3 FL (83-99); MEAN PLAT.VOLUME 10.7 uM^3 (9.5-12.4); MONOCYTE (%) 8.6 % (3-12); MONOCYTE COUNT 0.4 K/uL (0-0.8); NEUTROPHIL (%) 49.9 % (45-76); NEUTROPHIL COUNT 2.6 K/uL (1.8-6.4); PLATELET COUNT 191 K/uL (156-360); RBC DIS.WIDTH-SD 42.6 % (39-53); RED BLOOD COUNT 3.29 M/uL (3.80-5.20); WHITE BLOOD COUNT 5.1 K/uL (4.1-10.2)
[2017-03-15 06:33] LABS: ANION GAP 8 MEQ/L (2-14); CHLORIDE 114 MEQ/L (99-109); GFR ESTIMATE (CALCULATED) > 59 mL/min/; GLUCOSE 102 mg/dL (70-99); POTASSIUM 3.4 MEQ/L (3.7-5.4); SAMPLE HEMOLYSIS CHECK 0; SAMPLE ICTERIC CHECK 0; SAMPLE LIPEMIA CHECK 0; SODIUM 145 MEQ/L (136-147); UREA NITROGEN (BUN) 8 mg/dL (9-23)
[2017-03-15 07:08] LABS: POINT-OF-CARE METER ID UU13113725
[2017-03-15 10:58] LABS: POINT-OF-CARE METER ID UU13113725
[2017-03-15 15:58] LABS: POINT-OF-CARE METER ID UU13113774
[2017-03-16 05:57] LABS: POINT-OF-CARE METER ID UU13113725
[2017-03-16 07:33] VITALS: BP 187/81
[2017-03-16 08:24] VITALS: BP 160/71
[2017-03-16 11:32] LABS: POINT-OF-CARE METER ID UU13113725
[2017-03-16 16:06] VITALS: BP 172/78
[2017-03-16 16:11] LABS: POINT-OF-CARE METER ID UU13113725
[2017-03-16 20:54] LABS: POINT-OF-CARE METER ID UU13113774
[2017-03-16 23:20] VITALS: BP 164/73
[2017-03-17 07:35] VITALS: BP 174/73
[2017-03-17 08:13] LABS: POINT-OF-CARE METER ID UU13113774
[2017-03-17] MEDS ORDERED: MORPHINE SULFAT60 MG PO (10:18)
[2017-03-17] MEDS ORDERED: METFORMIN HCL500 M1 PO (10:19)
[2017-03-17] MEDS ORDERED: FUROSEMIDE20 MG PO (10:19)
[2017-03-17] MEDS ORDERED: MONTELUKAST SOD10 MG PO (10:20)
[2017-03-17 11:00] LABS: POINT-OF-CARE METER ID UU13113774
[2017-03-17] MEDS ORDERED: BENZONATATE100 MG PO (12:36)
[2017-03-17] MEDS ORDERED: SPIRIVA RESPIMAT4 GM IH (12:36)
[2017-03-17] MEDS ORDERED: AMLODIPINE BESY10 MG PO (12:36)
[2017-03-17 15:43] LABS: POINT-OF-CARE METER ID UU13113774
[2017-03-17 16:10] VITALS: BP 158/78
== END 2017-03-17 16:11 | DRG 683 ==
LOC: EME 12:19 → 5EAST 16:24 → EDOF 16:24 → ENRESERV 17:16 → 5EAST 19:50 → ENPENDDIS 03-17 15:30 → 5EAST 03-17 16:11
PROVIDERS: Hospitalist; Internal Medicine; Physician Assistant Medical
DX: N17.9 Acute kidney failure, unspecified (principal); J44.9 Chronic obstructive pulmonary disease, unspecified; J96.11 Chronic respiratory failure with hypoxia; M62.82 Rhabdomyolysis; S09.90XA Unspecified injury of head, initial encounter; E11.22 Type 2 diabetes mellitus with diabetic chronic kidney disease; D69.6 Thrombocytopenia, unspecified; E04.1 Nontoxic single thyroid nodule; I12.9 Hypertensive chronic kidney disease with stage 1 through stage 4 chronic kidney disease, or unspecified chronic kidney disease; Z68.32 Body mass index [BMI] 32.0-32.9, adult; G89.4 Chronic pain syndrome; W18.30XA Fall on same level, unspecified, initial encounter; Y92.009 Unspecified place in unspecified non-institutional (private) residence as the place of occurrence of the external cause; K21.9 Gastro-esophageal reflux disease without esophagitis; Z87.442 Personal history of urinary calculi; Z99.81 Dependence on supplemental oxygen; Z87.891 Personal history of nicotine dependence; E86.0 Dehydration
CPT/HCPCS: 70450; 71010; 72125; 73030; 73502; 76536; 80048; 81003; 82550; 82550 91; 82553; 82948; 84439; 84443; 84484; 85025; 85027; 93005; 94640; 94640 76; 94799; 97530 GP; 99202; 99281; 99285; G8978 GP CK; G8979 CJ; J1644; J1815; J7030